=== PATIENT | female | born 1980 | race Caucasian/White ===

== ENCOUNTER → 2018-06-25 | Outpatient (CLI) | payer BC ==
[~2018-06-25] MED LIST: LEXAPRO 10MG10 MG PO; PERCOCET 325 MG1 TA2 PO; ULTRAM 50MG TAB50 MG PO
== END ==
LOC: COL.VAS 10:18
DX: I82.890 Acute embolism and thrombosis of other specified veins (principal); Z86.718 Personal history of other venous thrombosis and embolism

== ENCOUNTER → 2018-09-16 | Outpatient (CLI) | payer BC | LOC: MC.RAD 06:59 | DX: Z12.31 Encounter for screening mammogram for malignant neoplasm of breast (principal) ==

== ENCOUNTER 2018-09-27 13:45 | Outpatient (RCR) | payer BC | END 2018-10-01 08:34 | disposition home or self-care (01) | LOC: WSC 13:45 | DX: M47.816 Spondylosis without myelopathy or radiculopathy, lumbar region (principal); E66.9 Obesity, unspecified; Z68.36 Body mass index [BMI] 36.0-36.9, adult; Z79.01 Long term (current) use of anticoagulants; Z79.899 Other long term (current) drug therapy ==

== ENCOUNTER → 2019-01-02 | Outpatient (CLI) | payer BC | LOC: COL.VAS 13:37 | DX: M79.89 Other specified soft tissue disorders (principal) ==

== ENCOUNTER → 2021-04-11 | Outpatient (CLI) | payer BC | LOC: MC.RAD 11:02 | DX: Z12.31 Encounter for screening mammogram for malignant neoplasm of breast (principal); N63.21 Unspecified lump in the left breast, upper outer quadrant ==

== ENCOUNTER → 2021-04-19 | Outpatient (CLI) | payer BC | LOC: MC.RAD 13:00 | DX: N63.21 Unspecified lump in the left breast, upper outer quadrant (principal) ==

== ENCOUNTER → 2021-04-27 | Outpatient (CLI) | payer BC | LOC: MC.RAD 09:20 | DX: N60.01 Solitary cyst of right breast (principal) ==